=== PATIENT | female | born 1980 | race Caucasian/White ===

== ENCOUNTER 2019-02-10 11:35 | Emergency (ER) | payer OTHER ==
[2019-02-10] MEDS: DEXAMETHASONE 10 MG/ML 1 ML INJ IM (13:46)
[2019-02-10] MEDS: ACETAMINOPHEN 325 MG TAB PO (13:55)
[2019-02-10] MEDS ORDERED: HYDROCODONE/APAP (5/325) TAB PO (15:00)
[2019-02-10] MEDS: HYDROCODONE/APAP (10/325) TAB PO (15:08)
== END 2019-02-10 15:30 | disposition home or self-care (01) ==
LOC: FTE 11:35
DX: S89.92XA Unspecified injury of left lower leg, initial encounter (principal); S89.91XA Unspecified injury of right lower leg, initial encounter; S39.92XA Unspecified injury of lower back, initial encounter; W10.9XXA Fall (on) (from) unspecified stairs and steps, initial encounter; Y92.9 Unspecified place or not applicable
CPT/HCPCS: 73562; 96372; 99284-25